=== PATIENT | male | born 1995 | race Caucasian/White ===

== ENCOUNTER 2018-03-22 07:51 | Emergency (ER) | payer MEDICAID ==
[~2018-03-22] VITALS: Ht 185.4 cm; Wt 105.9 kg
[2018-03-22 07:54] VITALS: BP 143/84
--- NOTE | 2018-03-22 08:27 | NUR ---
Patient given discharge instructions and Rx, they have confirmed that they understand the instructions. Patient ambulatory with steady gait.
== END 2018-03-22 08:29 | disposition home or self-care (01) ==
LOC: ED 08:23
DX: H04.321 Acute dacryocystitis of right lacrimal passage (principal)
CPT/HCPCS: 99283